=== PATIENT | female | born 1990 | race Two or more races ===

== ENCOUNTER 2022-01-09 07:45 | Emergency (ER) | payer MEDICAID ==
[~2022-01-09] VITALS: Ht 160 cm; Wt 62.9 kg
[2022-01-09 08:55] VITALS: BP 133/96
[2022-01-09] MEDS ORDERED: cefTRIAXone SOD 1,000 MG VL IM ONE (10:30)
[2022-01-09] MEDS ORDERED: PRED20TA2 PO (10:33)
[2022-01-09] MEDS ORDERED: AMOX-277 PO (10:33)
== END 2022-01-09 10:44 | disposition home or self-care (01) ==
LOC: ER 07:45
DX: J01.90 Acute sinusitis, unspecified (principal); J02.9 Acute pharyngitis, unspecified; Z20.822 Contact with and (suspected) exposure to COVID-19
CPT/HCPCS: 36415; 71046; 87426; 87804; 96372; 99284; J0696

== ENCOUNTER 2023-03-20 09:34 | Emergency (ER) | payer MEDICAID ==
[~2023-03-20] VITALS: Ht 160 cm; Wt 65.4 kg
[~2023-03-20 09:34] MED LIST: AMOX875T4 PO; AUG875T PO; BACDST PO; PRED20TA2 PO
[2023-03-20 10:29] LABS: Urine Bacteria FEW /hpf (None Seen); Urine Blood Negative /uL (Negative); Urine Clarity HAZY (Clear); Urine Color Yellow (Yellow); Urine Mucus FEW (None Seen); Urine Protein, UAD TRACE (Negative); Urine Specific Gravity 1.033 (1.001-1.035); Urine WBC 6 /hpf (0 - 5); Urine pH 6.5 (5.0-8.0)
[2023-03-20 10:31] VITALS: BP 139/80; PULSE 79; RESP 16; TEMP 98.3; O2SAT 97
[2023-03-20] MEDS ORDERED: NITR-52 PO (10:40)
[2023-03-20] MEDS ORDERED: FLUCONAZOLE 100 MG TAB PO ONE (10:45)
== END 2023-03-20 10:54 | disposition home or self-care (01) ==
LOC: ER 09:34 → EEVIPCON 09:34 → ER 10:54
DX: N39.0 Urinary tract infection, site not specified (principal); Z79.899 Other long term (current) drug therapy
CPT/HCPCS: 81001

== ENCOUNTER 2023-04-03 08:46 | Emergency (ER) | payer MEDICAID ==
[~2023-04-03] VITALS: Ht 160 cm; Wt 65.2 kg
[~2023-04-03 08:46] MED LIST changes: +NITR-52 PO
[2023-04-03 08:55] VITALS: BP 147/96; PULSE 77; RESP 19; TEMP 97.1; O2SAT 100
[2023-04-03 09:11] LABS: Urine Bacteria FEW /hpf (None Seen); Urine Blood Negative /uL (Negative); Urine Clarity HAZY (Clear); Urine Color Yellow (Yellow); Urine Protein, UAD Negative (Negative); Urine Specific Gravity 1.021 (1.001-1.035); Urine Urobilinogen Normal (Negative); Urine WBC 11 /hpf (0 - 5); Urine pH 5.5 (5.0-8.0)
[2023-04-03 10:22] LABS: Vaginal Epithelial Cells Few
[2023-04-03 10:24] LABS: Vaginal Bacteria Moderate; Vaginal Clue Cells None Seen; Vaginal Trichomonas Not Present
[2023-04-03] MEDS ORDERED: FLUC150T38 PO (10:57)
[2023-04-03] MEDS ORDERED: CEPH500C PO (10:57)
[2023-04-03] MEDS ORDERED: METR-344 PO (10:57)
== END 2023-04-03 11:01 | disposition home or self-care (01) ==
LOC: EEVIPCON 08:46 → ER 08:46
DX: N76.0 Acute vaginitis (principal); N39.0 Urinary tract infection, site not specified; Z32.02 Encounter for pregnancy test, result negative
CPT/HCPCS: 81001; 81025; 87070; 87077; 87210

== ENCOUNTER 2023-04-30 10:16 | Emergency (ER) | payer MEDICAID ==
[~2023-04-30] VITALS: Ht 160 cm; Wt 65.0 kg
[~2023-04-30 10:16] MED LIST changes: +CEPH500C PO; +FLUC150T38 PO; +METR-344 PO
[2023-04-30 10:51] VITALS: BP 142/84; PULSE 87; TEMP 98.1
[2023-04-30] MEDS: ALBUTEROL SULF 2.5 MG/0.5ML(0.5%) NEB SOLN NEB ONE (11:16)
[2023-04-30] MEDS: IPRATROPIUM BROM 0.5 MG/2.5ML INH SOL NEB ONE (11:17)
[2023-04-30 11:19] VITALS: RESP 14; O2SAT 98
[2023-04-30] MEDS: cefTRIAXone SOD 1,000 MG VL IM ONE (11:22)
[2023-04-30] MEDS ORDERED: PROM1SOL4 PO (11:38)
[2023-04-30] MEDS ORDERED: METH4PAK PO (11:38)
[2023-04-30] MEDS ORDERED: ALBU108A5 IN (11:38)
== END 2023-04-30 11:42 | disposition home or self-care (01) ==
LOC: ER 10:16
DX: J20.9 Acute bronchitis, unspecified (principal); R06.02 Shortness of breath; R07.89 Other chest pain
CPT/HCPCS: 71046; 94640; 96372; 99283; J0696; J7644

== ENCOUNTER 2023-06-26 09:52 | Emergency (ER) | payer MEDICAID ==
[~2023-06-26] VITALS: Ht 160 cm; Wt 64.0 kg
[~2023-06-26 09:52] MED LIST changes: +ALBU108A5 IN; +METH4PAK PO; +PROM1SOL4 PO
[2023-06-26 10:34] LABS: Urine Bacteria FEW /hpf (None Seen); Urine Blood Negative /uL (Negative); Urine Clarity Clear (Clear); Urine Color Yellow (Yellow); Urine Mucus FEW (None Seen); Urine Protein, UAD 1+ (Negative); Urine Specific Gravity 1.034 (1.001-1.035); Urine Urobilinogen Normal (Negative); Urine WBC 1 /hpf (0 - 5)
[2023-06-26] MEDS ORDERED: PHEN-922 PO (11:19)
[2023-06-26] MEDS ORDERED: BACDST PO (11:19)
[2023-06-26 12:07] VITALS: BP 121/79; PULSE 70; RESP 15; TEMP 97; O2SAT 100
[2023-06-28 20:06] LABS: Chlamydia Trachomatis, NAA Negative (Negative); Neisseria gonorrhoeae, NAA Negative (Negative)
== END 2023-06-26 12:09 | disposition home or self-care (01) ==
LOC: ER 09:52
DX: R30.0 Dysuria (principal); Z79.899 Other long term (current) drug therapy
CPT/HCPCS: 81001; 81025

== ENCOUNTER 2024-05-06 10:33 | Emergency (ER) | payer MEDICAID ==
[~2024-05-06] VITALS: Ht 160 cm; Wt 68.2 kg
[~2024-05-06 10:33] MED LIST changes: +PHEN-922 PO
[2024-05-06 10:45] VITALS: BP 146/92; PULSE 88; RESP 18; TEMP 97.3; O2SAT 96
--- NOTE | 2024-05-06 10:49 | ED.PDOC ---
General HPI Comments 34 year old female presents to the ED with a chief complaint of painful urination onset 1 week. Patient states she has been experiencing painful urination, dizziness, nausea, abdominal cramping for the past week. Denies any PMHx as well as fever, chills, vomiting, diarrhea, constipation. No other symptoms or modifying factors present at this time. Chief Complaint: Urinary Time Seen by MD: 10:39 Primary Care Provider: UNKNOWN Reviewed notes: Nurses Notes, Medications, Allergies Allergies: Coded Allergies: NO KNOWN ALLERGIES (Unverified , 01/09/22) Home Meds Active Scripts Ciprofloxacin Hcl (Cipro) 500 Mg Tab, 1 TAB PO BID, #14 TAB Prov:BOBO LEE MD 05/06/24 Phenazopyridine HCl (Phenazopyridine Hydrochlo) 200 Mg Tab, 200 MG PO TID for 2 Days, #6 TAB 0 Refills Prov:ISIAH PEGUERO NP 06/26/23 Sulfamethoxazole W/Trimethopri (Bactrim Ds Tablet) 1 Tab Tb, 1 TAB PO BID for 5 Days, #10 TAB 0 Refills Prov:ISIAH PEGUERO CATERING ASSISTANT 06/26/23 Promethazine-Dm (Promethazine Dm 6.25-15 mg/5Ml) 1 Ailyn Ailyn, 5 ML PO TID, #180 ML Prov:ADRIANE WADSWORTH 04/30/23 Methylprednisolone (Medrol Dosepak) 4 Mg Haseeb, 4 MG PO UD, #21 TAB UAD Prov:ADRIANE WADSWORTH 04/30/23 Albuterol Sulfate (Albuterol Sulfate Hfa) 108 Mcg/Act Aer, 108 MCG IN TID, #90 AER Prov:ADRIANE WADSWORTH 04/30/23 Fluconazole (Diflucan) 150 Mg Tab, 1 TAB PO ONCE, #2 TAB 1 Refill Prov:FLORENTIN FREEMANP 04/03/23 Metronidazole (Flagyl) 500 Mg Tab, 1 TAB PO BID for 7 Days, #14 TAB Prov:FLORENTIN FREEMANP 04/03/23 Cephalexin Monohydrate (Cephalexin) 500 Mg Cap, 1 CAP PO TID for 7 Days, #21 CAP Prov:FLORENTIN FREEMAN 04/03/23 Nitrofurantoin (Nitrofurantoin) 100 Mg Cap, 1 CAP PO BID for 5 Days, #10 CAP Prov:CIELO THIBODEAUX OTF PAC 03/20/23 Amoxicillin & Pot Clavulanate (AUGMENTIN TABLET) 875 Mg Tb, 875 MG PO BID for 10 Days, #20 TAB Prov:PIERCE ANGELO DO 02/06/23 Sulfamethoxazole W/Trimethopri (Bactrim Ds Tablet) 1 Tab Tb, 1 TAB PO BID for 7 Days, #14 TAB Prov:ADRIANE WADSWORTH 11/27/22 Prednisone (Prednisone) 20 Mg Tab, 60 MG PO DAILY, #15 MG Prov:ADRIANE WADSWORTH 01/09/22 Amoxicillin & Pot Clavulanate (Amoxicillin/Potassium Cla) 875 Mg Tab, 875 MG PO BID, #20 TAB Prov:ADRIANE WADSWORTH 01/09/22 Information Source: Patient Mode of Arrival: Ambulatory Severity: Moderate Timing: Weeks Duration: Since onset Prehospital treatment: None Onset: Spontaneous Symptoms: Dysuria History of: None Location: Suprapubic Modifying factors: None associated signs and symptoms: Abdominal Pain, Dysuria Past Medical History PAST MEDICAL HISTORY: Denies Surgical History: Denies all surgeries PLASTICS FABRICATOR History: Denies all PLASTICS FABRICATOR Hx Family History Family History: Reviewed,noncontributory to illness Social History Smoker: Non-Smoker Alcohol: Denies ETOH Use Drugs: Denies Drug Use Lives In: Home Constitutional: denies: chills, diaphoresis, fatigue, fever, malaise, sweats, weakness, others EENTM: denies: blurred vision, double vision, ear bleeding, ear discharge, ear drainage, ear pain, ear ringing, eye pain, eye redness, hearing loss, mouth pain, mouth swelling, nasal discharge, nose bleeding, nose congestion, nose pain, photophobia, tearing, throat pain, throat swelling, voice changes, others Respiratory: denies: cough, hemoptysis, orthopnea, SOB at rest, shortness of breath, SOB with excertion, stridor, wheezing, others Cardiovascular: denies: chest pain, dizzy spells, diaphoresis, Dyspnea on exertion, edema, irregular heart beat, left arm pain, lightheadedness, palpitations, PND, syncope, others Gastrointestinal: reports: abdominal pain (cramping), nausea; denies: abdomen distended, blood streaked bowels, constipated, diarrhea, dysphagia, difficulty swallowing, hematemesis, melena, poor appetite, poor fluid intake, rectal bleeding, rectal pain, vomiting, others Genitourinary: reports: dysuria; denies: abnormal vagina bleeding, burning, dyspareunia, flank pain, frequency, hematuria, incontinence, pain, , vagina discharge, urgency, others Neurological: reports: dizziness; denies: fainting, headache, left sided numbness, left sided weakness, numbness, paresthesia, pre-existing deficit, right sided numbness, right sided weakness, seizure, speech problems, tingling, tremors, weakness, others Musculoskeletal: denies: back pain, gout, joint pain, joint swelling, muscle pain, muscle stiffness, neck pain, others Integumetry: denies: bruises, change in color, change in hair/nails, dryness, laceration, lesions, lumps, rash, wounds, others Allergic/Immunocompromised: denies: Difficulty Healing, Frequent Infections, Hives, Itching, others Hematologic/Lymphatic: denies: anemia, blood clots, easy bleeding, easy bruising, swollen glands, others Endocrine: denies: excessive hunger, excessive sweating, excessive thirst, excessive urination, flushing, intolerance to cold, intolerance to heat, unexplained weight gain, unexplained weight loss, others Psychiatric: denies: anxiety, bipolar disorder, depression, hopeless, panic disorder, schizophrenia, sleepless, suicidal, others All Other Systems: Reviewed and Negative Physical Exam General Appearance: No Apparent Distress HEENT: Normal ENT Inspection, Pharynx Normal, TMs Normal Neck: Full Range of Motion, Non-Tender, Normal, Normal Inspection Respiratory: Chest Non-Tender, Lungs Clear, No Accessory Muscle Use, No Respiratory Distress, Normal Breath Sounds Cardiovascular: No Edema, No JVD, No Murmur, No Gallop, Normal Peripheral Pulses, Regular Rate/Rhythm Breast Exam: Deferred Gastrointestinal: No Organomegaly, Non Tender, No Pulsatile Mass, Normal Bowel Sounds, Soft Genitalia: Deferred Pelvic: Deferred Rectal: Deferred Extremities: No calf tenderness, Normal capillary refill, Normal inspection, Normal range of motion, Non-tender, No pedal edema Musculoskeletal : Apperance: Normal Neurologic: Alert, civil division commander deputy sheriff II-XII nml as Tested, No Motor Deficits, Normal Affect, Normal Mood, No Sensory Deficits Cerebellar Function: Normal Reflexes: Normal Skin: Dry, Normal Color, Warm Lymphatic: No Adenopathy Was a procedure done? Was a procedure done?: No Differential Diagnosis Kidney stone (Female): Strain, Urolithiasis Urinary Problem (Female): UTI X-Ray, Labs, Meds, VS Vital Signs Date Time Temp Pulse Resp B/P (MAP) Pulse Ox O2 Delivery O2 Flow Rate FiO2 05/06/24 10:45 97.3 88 18 146/92 (110) 96 97.3 05/06/24 10:45 88 18 96 Room Air* 0 21 05/06/24 10:39 96.9 71 16 158/95 (116) 98 96.9 Lab Test 05/06/24 10:41 Range/Units Urine Color Yellow Yellow Urine Clarity Turbid H Clear Urine pH 5.0 5.0-9.0 Urine Specific [place] 1.026 1.001-1.035 Urine Protein Negative Negative Urine Ketones Negative Negative Urine Blood Trace H Negative /uL Urine Nitrite Negative Negative Urine Bilirubin Negative Negative Urine Urobilinogen Normal Negative mg/dL Urine Leukocyte Esterase 1+ Negative /uL Urine RBC 1 0 - 4 /hpf Urine Microscopic WBC 10 H 0-5 /HPF Urine Squamous Epithelial Cells Mod <5 /hpf Urine Bacteria Mod H None Seen /hpf Urine Mucus Few None Seen Urine Glucose Normal Normal mg/dL The urine test is positive for UTI The patient was given Cipro 500 mg by mouth here in the emergency department's The patient was given a prescription of Cipro and follow up with the primary care doctor The patient will return to the emergency department's condition worsens. Time of 1ST Reevaluation: 11:09 Reevaluation 1ST: Unchanged Patient Education/Counseling: Diagnosis, Treatment, Prognosis, Need For Follow Up Family Education/Counseling: No Family Present Departure 1 Departure Time of Disposition: 11:13 Impression: Primary Impression: UTI (urinary tract infection) Qualified Codes: N30.00 - Acute cystitis without hematuria Disposition: 01 HOME / SELF CARE / HOMELESS Condition: Fair e-Prescriptions Ciprofloxacin Hcl (Cipro) 500 Mg Tab 1 TAB PO BID, #14 TAB Prov: BOBO LEE MD 05/06/24 Discharged With: Self Critical Care Note Critical Care Time?: No Stability Stability form required: No I personally scribed for BOBO LEE MD ([email or web address]) on 05/06/24 at 10:49. Electronically submitted by Demi Berman ([email or web address]). BOBO LEE MD May 06, 2024 10:49
[2024-05-06 11:03] LABS: Urine Bacteria MOD /hpf (None Seen); Urine Blood TRACE /uL (Negative); Urine Clarity Turbid (Clear); Urine Color Yellow (Yellow); Urine Mucus FEW (None Seen); Urine Protein, UAD Negative (Negative); Urine Specific Gravity 1.026 (1.001-1.035); Urine Squamous Epithelial Cell MOD /hpf (<5); Urine Urobilinogen Normal (Negative); Urine WBC 10 /HPF (0-5)
[2024-05-06] MEDS ORDERED: CIPR-173 PO (11:14)
[2024-05-06] MEDS: CIPROFLOXACIN HCL 500 MG TAB PO ONE (11:27)
== END 2024-05-06 11:34 | disposition home or self-care (01) ==
LOC: ER 10:33 → EEVIPCON 10:33 → ER 11:33
DX: N39.0 Urinary tract infection, site not specified (principal); Z79.899 Other long term (current) drug therapy
CPT/HCPCS: 81001